=== PATIENT | female | born 1960 | race Caucasian/White ===

== ENCOUNTER 2018-03-11 05:27 | Inpatient (IN) | payer BC ==
[2018-03-06 12:24] LABS: BASOPHILS # (AUTO) 0.1 X10'3 (0-0.2); BASOPHILS % (AUTO) 0.8 % (0-1); EOSINOPHILS # (AUTO) 0.1 X10'3 (0-0.9); LYMPHOCYTES # (AUTO) 1.9 X10'3 (1.1-4.8); MEAN CORPUSCULAR HEMOGLOBIN 29.3 PG (27.0-31.0); MEAN CORPUSCULAR HGB CONC 33.5 % (33.0-36.5); MEAN CORPUSCULAR VOLUME 87.4 FL (78-98); MEAN PLATELET VOLUME 9.8 FL (7.4-10.4); MONOCYTES # (AUTO) 0.8 X10'3 (0-0.9); NEUTROPHILS # (AUTO) 4.2 X10'3 (1.8-7.7); NEUTROPHILS % (AUTO) 60.2 % (42-75); PRE OP HEMATOCRIT 39.9 % (35.0-45.0); PRE OP HEMOGLOBIN 13.4 g/dL (12.0-16.0); PRE OP PLATELET COUNT 283 X10'3 (140-440); RED BLOOD COUNT 4.57 X10'6 (4.20-5.60); RED CELL DISTRIBUTION WIDTH 13.8 % (11.5-14.5)
[2018-03-06 12:26] LABS: CLARITY,URINE Clear (Clear); GLUCOSE, URINE Negative (Neg); KETONES,URINE 15 mg/dl (Neg); LEUKOCYTE ESTERASE ,URINE Negative (Neg); NITRITES, URINE Negative (Neg); OCCULT BLOOD,URINE Negative (Neg); PROTEIN,URINE Negative (Neg)
[2018-03-06 12:28] LABS: COLOR,URINE Dark Yellow (Yellow); UA COLLECTION TYPE CLN CATCH MIDSTREAM
[2018-03-06 12:41] LABS: ALBUMIN 3.9 G/DL (3.4-5.0); ALKALINE PHOSPHATASE 60 IU/L (46-116); BLOOD UREA NITROGEN 16 MG/DL (7-18); BUN/CREATININE RATIO 23.9 (6.6-38.0); CALCIUM 9.5 MG/DL (8.5-10.1); CHLORIDE 103 MMOL/L (99-107); CREATININE 0.67 MG/DL (0.40-0.90); PRE OP ALT 24 U/L (30-65); PRE OP ANION GAP 7 (8-16); PRE OP AST 22 U/L (10-37); PRE OP BILIRUB, TOTAL 0.5 MG/DL (0.0-1.0); PRE OP GLUCOSE 89 MG/DL (70-104); PRE OP POTASSIUM 4.2 MMOL/L (3.4-5.1); PRE OP SODIUM 141 MMOL/L (135-145); TOTAL CARBON DIOXIDE 31.3 MMOL/L (24-32); TOTAL PROTEIN 7.8 G/DL (6.4-8.2); eGFR 90 ML/MIN
[2018-03-11] VITALS (14 sets, daily range): BP systolic 101–134; BP diastolic 46–88
[~2018-03-11] VITALS: Ht 162.6 cm; Wt 56.0 kg
[~2018-03-11 05:27] MED LIST: CALC-854 PO; ESTR1TAB35 PO; IRON-12 PO; MULT-1141 PO; ringers solution, lacted 1,000 ML IV SCH
[2018-03-11] MEDS ORDERED: acetaminophen 325mg tablet PO ONE (05:30)
[2018-03-11] MEDS ORDERED: VANCOMYCIN INJ 1000 MG in NORMAL SALINE 250ml IV.SOLN IV ONE (05:30)
[2018-03-11] MEDS ORDERED: gabapentin 300mg capsule PO ONE (05:30)
[2018-03-11] MEDS ORDERED: ceFAZolin inj. 2,000 MG in dextrose 5%-water 100 ML IV ONE (05:30)
[2018-03-11] MEDS ORDERED: famotidine 20mg tablet PO ONE (05:30)
[2018-03-11] MEDS ORDERED: oxyCODONE SR 10mg (sust. release) tab PO ONE (05:30)
[2018-03-11] MEDS ORDERED: tranexamic acid inj. 1,000 MG in normal saline 100ml IV soln 90 ML IV ONE (05:30)
[2018-03-11] MEDS ORDERED: LIDOcaine 1% (10mg/ml) 2ml vial ONE (05:35)
[2018-03-11] MEDS ORDERED: ROPIVAcaine 0.5% (5mg/ml) 30ml vial ONE (06:53)
[2018-03-11] MEDS ORDERED: bacitracin inj 150,000 UNIT in sodium chloride irrig. sol 3,000 ML IR ONE (07:00)
[2018-03-11] MEDS ORDERED: BUPIVAcaine/PF 7.5mg/ml (0.75%) 10ml vial ONE (07:04)
[2018-03-11] MEDS ORDERED: MIDAZolam 5mg/5ml vial ONE (07:07)
[2018-03-11] MEDS ORDERED: fentaNYL/PF 50MCG/1 ML 2ML syringe ONE (07:07)
[2018-03-11] MEDS ORDERED: propofol inj 20 ML IV ONE (07:44)
[2018-03-11] MEDS ORDERED: midazolam 2 mg/2 ml injection ONE (07:45)
[2018-03-11] MEDS ORDERED: ringers solution, lacted 1,000 ML IV SCH (08:02)
[2018-03-11] MEDS ORDERED: proCHLORperazine 10 MG/2 ml inj IV PRN (08:05)
[2018-03-11] MEDS ORDERED: morphine 4 MG/ML inj SYRINge IV PRN ×2 (08:05)
[2018-03-11] MEDS ORDERED: meperidine/PF 25mg/ml syringe IV PRN ×3 (08:05)
[2018-03-11] MEDS ORDERED: ondansetron/PF 4mg/2ml inj IV PRN ×2 (08:05→09:05)
[2018-03-11] MEDS ORDERED: ceFAZolin 1000mg inj ONE (08:15)
[2018-03-11] MEDS ORDERED: HYDROmorphone inj. 0.5 MG/0.5 ML DISP.SYRIN IV PRN (09:05)
[2018-03-11] MEDS ORDERED: bisacodyl 10mg suppository rectal RC PRN (09:05)
[2018-03-11] MEDS ORDERED: diphenhydrAMINE 25mg capsule PO PRN ×2 (09:05)
[2018-03-11] MEDS ORDERED: oxyCODONE/APAP 10/325mg tablet PO PRN (09:05)
[2018-03-11] MEDS ORDERED: acetaminophen 325mg tablet PO PRN (09:05)
[2018-03-11] MEDS ORDERED: magnesium hydroxide 30ml (MOM) UD suspension PO PRN (09:05)
[2018-03-11] MEDS: potassium cl 20mEq in 1/2 NS 1,000 ML IV SCH ×2 (10:35→18:26)
[2018-03-11] MEDS: gabapentin 300mg capsule PO SCH ×2 (13:25→20:12)
[2018-03-11] MEDS: ceFAZolin 1GM/D5W- ADD-VANTAGE 50 ML IV SCH ×2 (15:42→23:56)
[2018-03-11] MEDS ORDERED: vancomycin/NS 1 GM ADD-VANTAGE 250 ML IV SCH (20:00)
[2018-03-11] MEDS: ascorbic acid 500mg tablet PO SCH (20:12)
[2018-03-11] MEDS: sennosides 8.6mg tablet PO SCH (20:12)
[2018-03-12] VITALS (7 sets, daily range): BP systolic 84–122; BP diastolic 57–74
[2018-03-12] MEDS: oxyCODONE/APAP 10/325mg tablet PO PRN ×5 (01:43→19:16)
[2018-03-12] MEDS: potassium cl 20mEq in 1/2 NS 1,000 ML IV SCH ×3 (05:25→16:43)
[2018-03-12 06:03] LABS: BASOPHILS % (AUTO) 0.2 % (0-1); EOSINOPHILS # (AUTO) 0.1 X10'3 (0-0.9); EOSINOPHILS % (AUTO) 1.3 % (0-6); HEMATOCRIT 35.8 % (35.0-45.0); HEMOGLOBIN 11.8 g/dl (12.0-16.0); LYMPHOCYTES # (AUTO) 1.5 X10'3 (1.1-4.8); LYMPHOCYTES % (AUTO) 17.8 % (21-51); MEAN CORPUSCULAR HEMOGLOBIN 28.8 PG (27.0-31.0); MEAN CORPUSCULAR HGB CONC 32.9 % (33.0-36.5); MEAN CORPUSCULAR VOLUME 87.4 FL (78-98); MEAN PLATELET VOLUME 9.7 FL (7.4-10.4); MONOCYTES # (AUTO) 0.8 X10'3 (0-0.9); MONOCYTES % (AUTO) 9.1 % (2-12); NEUTROPHILS # (AUTO) 5.9 X10'3 (1.8-7.7); NEUTROPHILS % (AUTO) 71.6 % (42-75); PLATELET COUNT 264 X10'3 (140-440); RED CELL DISTRIBUTION WIDTH 13.7 % (11.5-14.5); WHITE BLOOD COUNT 8.2 X10'3 (4.5-11.0)
[2018-03-12 06:06] LABS: INR 1.5 INR; PROTHROMBIN TIME 14.9 SECONDS (9.0-12.0)
[2018-03-12 06:14] LABS: ANION GAP 6 (8-16); CHLORIDE 102 MMOL/L (99-107); SODIUM 138 MMOL/L (135-145); TOTAL CARBON DIOXIDE 30.1 MMOL/L (24-32)
[2018-03-12] MEDS: gabapentin 300mg capsule PO SCH ×3 (07:14→19:16)
[2018-03-12] MEDS: ascorbic acid 500mg tablet PO SCH ×2 (07:14→19:16)
[2018-03-12] MEDS: multivitamins, therapeutics tablet PO SCH (07:14)
[2018-03-12] MEDS: ESTRATEST HS PO SCH (08:00)
[2018-03-12] MEDS ORDERED: warfarin 3mg tablet PO ONE (10:00)
[2018-03-12] MEDS: LACTOSE-FREE FOOD 237ML (BOOST) PO SCH (18:00)
[2018-03-12] MEDS: sennosides 8.6mg tablet PO SCH (19:16)
[2018-03-12] MEDS: celeCOXIB 100mg capsule PO SCH (19:16)
[2018-03-13] MEDS: oxyCODONE/APAP 10/325mg tablet PO PRN ×3 (00:55→12:39)
[2018-03-13] MEDS: potassium cl 20mEq in 1/2 NS 1,000 ML IV SCH (01:03)
[2018-03-13 05:00] VITALS: BP 107/65
[2018-03-13 06:33] LABS: BASOPHILS % (AUTO) 0.3 % (0-1); EOSINOPHILS # (AUTO) 0.1 X10'3 (0-0.9); EOSINOPHILS % (AUTO) 1.6 % (0-6); HEMATOCRIT 34.6 % (35.0-45.0); HEMOGLOBIN 11.4 g/dl (12.0-16.0); LYMPHOCYTES # (AUTO) 1.7 X10'3 (1.1-4.8); LYMPHOCYTES % (AUTO) 20.6 % (21-51); MEAN CORPUSCULAR HEMOGLOBIN 28.9 PG (27.0-31.0); MEAN CORPUSCULAR VOLUME 87.5 FL (78-98); MEAN PLATELET VOLUME 9.4 FL (7.4-10.4); MONOCYTES # (AUTO) 0.9 X10'3 (0-0.9); MONOCYTES % (AUTO) 10.5 % (2-12); NEUTROPHILS # (AUTO) 5.6 X10'3 (1.8-7.7); PLATELET COUNT 233 X10'3 (140-440); RED BLOOD COUNT 3.96 X10'6 (4.20-5.60); RED CELL DISTRIBUTION WIDTH 13.7 % (11.5-14.5); WHITE BLOOD COUNT 8.4 X10'3 (4.5-11.0)
[2018-03-13 06:40] LABS: INR 1.4 INR; PROTHROMBIN TIME 14.5 SECONDS (9.0-12.0)
[2018-03-13] MEDS: ascorbic acid 500mg tablet PO SCH (07:13)
[2018-03-13] MEDS: gabapentin 300mg capsule PO SCH ×2 (07:13→12:38)
[2018-03-13] MEDS: ESTRATEST HS PO SCH (07:13)
[2018-03-13] MEDS: multivitamins, therapeutics tablet PO SCH (07:13)
[2018-03-13] MEDS: celeCOXIB 100mg capsule PO SCH (07:13)
[2018-03-13] MEDS: LACTOSE-FREE FOOD 237ML (BOOST) PO SCH ×2 (08:00→12:38)
[2018-03-13] MEDS ORDERED: ASPI-41 PO (08:07)
[2018-03-13] MEDS ORDERED: acetaminophen 325mg tablet PO PRN (09:05)
[2018-03-13 10:00] VITALS: BP 96/62
[2018-03-13] MEDS ORDERED: warfarin 5mg tablet PO ONE (10:00)
== END 2018-03-13 13:01 | disposition home or self-care (01) | DRG 470 ==
LOC: PAS IN 05:27 → EDSTATUS 07:30 → ORTHO 4S 10:20
PROVIDERS: ADMIT Specialist; ATTEND Specialist
PROC: 0SRB02Z Replacement of Left Hip Joint with Metal on Polyethylene Synthetic Substitute, Open Approach (ICD-10-PCS; principal; 2018-03-11 07:14)
DX: M16.0 Bilateral primary osteoarthritis of hip (principal); D62 Acute posthemorrhagic anemia; Q65.89 Other specified congenital deformities of hip; Z90.710 Acquired absence of both cervix and uterus; Z72.89 Other problems related to lifestyle; Z79.899 Other long term (current) drug therapy
CPT/HCPCS: 36415; 73502; 80051; 80053; 81003; 85025; 85610; 85730; 87070; 97110; 97116; 97161; 97530; A4565; A6253; A6255; A6449; A6455; A7000; C1758; C1776; J0690; J2250; J2405; J2704; J2795; J3010; J3370; J3490; J7030; J7060; J7120

== ENCOUNTER 2018-09-01 05:27 | Inpatient (IN) | payer BC ==
[2018-08-21 11:06] LABS: BASOPHILS # (AUTO) 0.1 X10'3 (0-0.2); BASOPHILS % (AUTO) 1.1 % (0-1); EOSINOPHILS # (AUTO) 0.1 X10'3 (0-0.9); EOSINOPHILS % (AUTO) 0.9 % (0-6); LYMPHOCYTES # (AUTO) 1.7 X10'3 (1.1-4.8); LYMPHOCYTES % (AUTO) 25.4 % (21-51); MEAN CORPUSCULAR HGB CONC 33.2 % (33.0-36.5); MEAN CORPUSCULAR VOLUME 87.3 FL (78-98); MEAN PLATELET VOLUME 9.7 FL (7.4-10.4); MONOCYTES # (AUTO) 0.7 X10'3 (0-0.9); MONOCYTES % (AUTO) 9.6 % (2-12); NEUTROPHILS # (AUTO) 4.3 X10'3 (1.8-7.7); PRE OP HEMATOCRIT 38.4 % (35.0-45.0); PRE OP HEMOGLOBIN 12.7 g/dL (12.0-16.0); PRE OP PLATELET COUNT 281 X10'3 (140-440); RED CELL DISTRIBUTION WIDTH 13.6 % (11.5-14.5)
[2018-08-21 11:06] LABS: CLARITY,URINE CLEAR (Clear); COLOR,URINE YELLOW (Yellow); GLUCOSE, URINE NEGATIVE (Neg); KETONES,URINE NEGATIVE (Neg); LEUKOCYTE ESTERASE ,URINE NEGATIVE (Neg); NITRITES, URINE NEGATIVE (Neg); OCCULT BLOOD,URINE NEGATIVE (Neg); PROTEIN,URINE NEGATIVE (Neg); UROBILINOGEN,URINE 0.2 E.U/dL (0.2-1.0)
[2018-08-21 11:17] LABS: PRE OP PROTIME 10.2 SECONDS (9.0-12.0)
[2018-08-21 11:19] LABS: UA COLLECTION TYPE CLN CATCH MIDSTREAM
[2018-08-21 11:25] LABS: ALBUMIN 3.7 G/DL (3.4-5.0); ALBUMIN/GLOBULIN RATIO 1.1 (1.1-1.5); ALKALINE PHOSPHATASE 50 IU/L (46-116); BLOOD UREA NITROGEN 12 MG/DL (7-18); BUN/CREATININE RATIO 16.9 (6.6-38.0); CHLORIDE 103 MMOL/L (99-107); CREATININE 0.71 MG/DL (0.40-0.90); PRE OP ALT 24 U/L (30-65); PRE OP ANION GAP 10 (8-16); PRE OP AST 21 U/L (10-37); PRE OP BILIRUB, TOTAL 0.2 MG/DL (0.0-1.0); PRE OP GLUCOSE 108 MG/DL (70-104); PRE OP SODIUM 140 MMOL/L (135-145); TOTAL CARBON DIOXIDE 27.3 MMOL/L (24-32); TOTAL PROTEIN 7.1 G/DL (6.4-8.2); eGFR 84 ML/MIN
[2018-09-01] VITALS (25 sets, daily range): BP systolic 91–132; BP diastolic 46–91
[~2018-09-01] VITALS: Ht 162.6 cm; Wt 55.9 kg
[~2018-09-01 05:27] MED LIST changes: +ASCO500C15 PO; +CYAN100097 PO; +FERR-28 PO; -IRON-12 PO; +celeCOXIB 100mg capsule PO ONE
[2018-09-01] MEDS ORDERED: acetaminophen 325mg tablet PO ONE (05:30)
[2018-09-01] MEDS ORDERED: gabapentin 300mg capsule PO ONE (05:30)
[2018-09-01] MEDS ORDERED: oxyCODONE SR 10mg (sust. release) tab -2 tabs (20mg) PO ONE (05:30)
[2018-09-01] MEDS ORDERED: tranexamic acid inj. 1,500 MG in normal saline 100ml IV soln 85 ML IV ONE (05:30)
[2018-09-01] MEDS ORDERED: cefazolin/dext.iso 2gm/50ml 50 ML IV ONE (05:30)
[2018-09-01] MEDS ORDERED: vancomycin/NS 1 GM ADD-VANTAGE 250 ML X 1 DOSE IV ONE (05:30)
[2018-09-01] MEDS ORDERED: famotidine 20mg tablet PO ONE (05:30)
[2018-09-01] MEDS ORDERED: LIDOcaine 1% (10mg/ml) 2ml vial ONE (06:09)
[2018-09-01] MEDS ORDERED: ROPIVAcaine 0.5% (5mg/ml) 30ml vial ONE (06:47)
[2018-09-01] MEDS ORDERED: BUPIVAcaine/dex-water/PF 7.5 mg/ml 2ml ampul ONE (07:09)
[2018-09-01] MEDS ORDERED: MIDAZolam 1mg/ml 10ml vial ONE (07:09)
[2018-09-01] MEDS ORDERED: fentaNYL/PF 50MCG/1 ML 2ML syringe ONE (07:09)
[2018-09-01] MEDS ORDERED: fentaNYL /PF 50mcg/ml 5ml ampule ONE (07:37)
[2018-09-01] MEDS ORDERED: midazolam 2 mg/2 ml injection ONE (07:37)
[2018-09-01] MEDS ORDERED: LIDOcaine 2% (20mg/ml) 5ml vial ONE (07:39)
[2018-09-01] MEDS ORDERED: rocuronium 10mg/ml inj IV ONE (07:40)
[2018-09-01] MEDS ORDERED: propofol inj 20 ML IV ONE ×2 (07:40→08:38)
[2018-09-01] MEDS ORDERED: ketamine 50mg/5ml syringe ONE (08:33)
[2018-09-01] MEDS ORDERED: ringers solution, lacted 1,000 ML IV SCH (08:48)
[2018-09-01] MEDS ORDERED: meperidine/PF 25mg/ml syringe IV PRN ×3 (08:50)
[2018-09-01] MEDS ORDERED: proCHLORperazine 10 MG/2 ml inj IV PRN (08:50)
[2018-09-01] MEDS ORDERED: morphine 4 MG/ML inj SYRINge IV PRN ×2 (08:50)
[2018-09-01] MEDS ORDERED: ondansetron/PF 4mg/2ml inj IV PRN ×2 (08:50→09:30)
[2018-09-01] MEDS ORDERED: ondansetron/PF 4mg/2ml inj ONE (09:11)
[2018-09-01] MEDS ORDERED: ePHEDrine 50MG/ML INJ. ONE (09:11)
[2018-09-01] MEDS ORDERED: phenylephrine 10mg/ml inj. ONE (09:11)
[2018-09-01] MEDS ORDERED: neostigmine methylsulfate 1 MG/ML 10ml vial ONE (09:11)
[2018-09-01] MEDS ORDERED: dexamethasone sod phosphate 4mg/ml inj. ONE (09:11)
[2018-09-01] MEDS ORDERED: glycopyrrolate 0.2mg/ml inj ONE (09:11)
[2018-09-01] MEDS: potassium cl 20mEq in 1/2 NS 1,000 ML IV SCH ×2 (09:28→20:08)
[2018-09-01] MEDS ORDERED: oxyCODONE/APAP 10/325mg tablet PO PRN (09:30)
[2018-09-01] MEDS ORDERED: diphenhydrAMINE 25mg capsule PO PRN ×2 (09:30)
[2018-09-01] MEDS ORDERED: magnesium hydroxide 30ml (MOM) UD suspension PO PRN (09:30)
[2018-09-01] MEDS ORDERED: HYDROmorphone 1 mg/ml syringe IV PRN (09:30)
[2018-09-01] MEDS ORDERED: bisacodyl 10mg suppository rectal RC PRN (09:30)
[2018-09-01] MEDS ORDERED: acetaminophen 325mg tablet PO PRN (09:30)
[2018-09-01] MEDS: gabapentin 300mg capsule PO SCH ×2 (16:09→20:07)
[2018-09-01] MEDS: ceFAZolin 1GM/D5W- ADD-VANTAGE 50 ML IV SCH ×2 (16:09→23:45)
[2018-09-01] MEDS: oxyCODONE/APAP 10/325mg tablet PO PRN ×2 (17:40→22:26)
[2018-09-01] MEDS ORDERED: vancomycin/NS 1 GM ADD-VANTAGE 250 ML IV SCH (20:00)
[2018-09-01] MEDS: calcium carbonate/vitamin D3 tablet PO SCH (20:07)
[2018-09-01] MEDS: sennosides 8.6mg tablet PO SCH (20:07)
[2018-09-01] MEDS: ascorbic acid 500mg tablet PO SCH (20:08)
[2018-09-02 02:00] VITALS: BP 96/52
[2018-09-02] MEDS: oxyCODONE/APAP 10/325mg tablet PO PRN ×4 (04:58→17:17)
[2018-09-02 06:00] VITALS: BP 116/76
[2018-09-02 06:07] LABS: BASOPHILS % (AUTO) 0.3 % (0-1); EOSINOPHILS # (AUTO) 0.2 X10'3 (0-0.9); EOSINOPHILS % (AUTO) 2.1 % (0-6); HEMATOCRIT 36.1 % (35.0-45.0); LYMPHOCYTES # (AUTO) 1.6 X10'3 (1.1-4.8); LYMPHOCYTES % (AUTO) 22.3 % (21-51); MEAN CORPUSCULAR HEMOGLOBIN 29.4 PG (27.0-31.0); MEAN CORPUSCULAR HGB CONC 33.2 % (33.0-36.5); MEAN CORPUSCULAR VOLUME 88.6 FL (78-98); MEAN PLATELET VOLUME 9.8 FL (7.4-10.4); MONOCYTES # (AUTO) 0.6 X10'3 (0-0.9); MONOCYTES % (AUTO) 8.1 % (2-12); NEUTROPHILS # (AUTO) 4.8 X10'3 (1.8-7.7); NEUTROPHILS % (AUTO) 67.2 % (42-75); PLATELET COUNT 244 X10'3 (140-440); RED BLOOD COUNT 4.07 X10'6 (4.20-5.60); RED CELL DISTRIBUTION WIDTH 13.5 % (11.5-14.5); WHITE BLOOD COUNT 7.2 X10'3 (4.5-11.0)
[2018-09-02 06:14] LABS: ANION GAP 8 (8-16); CHLORIDE 102 MMOL/L (99-107); POTASSIUM 3.6 MMOL/L (3.5-5.1); SODIUM 138 MMOL/L (135-145); TOTAL CARBON DIOXIDE 27.8 MMOL/L (24-32)
[2018-09-02 06:17] LABS: INR 1.5 INR; PROTHROMBIN TIME 14.8 SECONDS (9.0-12.0)
[2018-09-02] MEDS: potassium cl 20mEq in 1/2 NS 1,000 ML IV SCH ×2 (06:44→20:24)
[2018-09-02] MEDS ORDERED: ESTERIFIED ESTROGENS PO SCH (08:00)
[2018-09-02] MEDS: ESTRATEST HS PO SCH (08:00)
[2018-09-02] MEDS ORDERED: METHYLTESTOSTERONE PO SCH (08:00)
[2018-09-02] MEDS: ascorbic acid 500mg tablet PO SCH ×2 (08:14→20:20)
[2018-09-02] MEDS: multivitamins, therapeutics tablet PO SCH (08:14)
[2018-09-02] MEDS: gabapentin 300mg capsule PO SCH ×3 (08:14→20:20)
[2018-09-02] MEDS: calcium carbonate/vitamin D3 tablet PO SCH ×2 (08:14→20:20)
[2018-09-02 10:00] VITALS: BP 134/74
[2018-09-02] MEDS ORDERED: warfarin 3mg tablet PO ONE (10:00)
[2018-09-02] MEDS ORDERED: docusate sod 100mg capsule PO ONE (10:40)
[2018-09-02 18:00] VITALS: BP 125/79
[2018-09-02] MEDS: celeCOXIB 100mg capsule PO SCH (20:20)
[2018-09-02] MEDS: sennosides 8.6mg tablet PO SCH (20:20)
[2018-09-02 22:00] VITALS: BP 105/68
[2018-09-03] MEDS: potassium cl 20mEq in 1/2 NS 1,000 ML IV SCH ×2 (01:28→05:24)
[2018-09-03 05:21] LABS: BASOPHILS % (AUTO) 0.2 % (0-1); EOSINOPHILS # (AUTO) 0.2 X10'3 (0-0.9); EOSINOPHILS % (AUTO) 2.6 % (0-6); HEMATOCRIT 34.6 % (35.0-45.0); HEMOGLOBIN 11.4 g/dl (12.0-16.0); LYMPHOCYTES # (AUTO) 1.6 X10'3 (1.1-4.8); LYMPHOCYTES % (AUTO) 19.9 % (21-51); MEAN CORPUSCULAR HEMOGLOBIN 29.1 PG (27.0-31.0); MEAN CORPUSCULAR VOLUME 88.2 FL (78-98); MEAN PLATELET VOLUME 9.8 FL (7.4-10.4); MONOCYTES # (AUTO) 0.9 X10'3 (0-0.9); MONOCYTES % (AUTO) 10.3 % (2-12); NEUTROPHILS # (AUTO) 5.5 X10'3 (1.8-7.7); PLATELET COUNT 222 X10'3 (140-440); RED BLOOD COUNT 3.92 X10'6 (4.20-5.60); RED CELL DISTRIBUTION WIDTH 13.7 % (11.5-14.5); WHITE BLOOD COUNT 8.3 X10'3 (4.5-11.0)
[2018-09-03] MEDS ORDERED: ASPI-1264 PO (05:44)
[2018-09-03 05:47] LABS: INR 1.4 INR
[2018-09-03 06:00] VITALS: BP 108/62
[2018-09-03] MEDS: ESTRATEST HS PO SCH (08:00)
[2018-09-03] MEDS: calcium carbonate/vitamin D3 tablet PO SCH (08:22)
[2018-09-03] MEDS: multivitamins, therapeutics tablet PO SCH (08:22)
[2018-09-03] MEDS: celeCOXIB 100mg capsule PO SCH (08:22)
[2018-09-03] MEDS: gabapentin 300mg capsule PO SCH ×2 (08:22→12:42)
[2018-09-03] MEDS: ascorbic acid 500mg tablet PO SCH (08:22)
[2018-09-03] MEDS ORDERED: acetaminophen 325mg tablet PO PRN (09:30)
[2018-09-03 10:00] VITALS: BP 123/89
[2018-09-03] MEDS ORDERED: warfarin 5mg tablet PO ONE (10:00)
[2018-09-03] MEDS: oxyCODONE/APAP 10/325mg tablet PO PRN (12:42)
== END 2018-09-03 13:50 | disposition home or self-care (01) | DRG 470 ==
LOC: PAS IN 05:27 → EDSTATUS 07:30 → ORTHO 4S 12:11
PROVIDERS: ADMIT Specialist; ATTEND Specialist
PROC: 0SR902Z Replacement of Right Hip Joint with Metal on Polyethylene Synthetic Substitute, Open Approach (ICD-10-PCS; principal; 2018-09-01 07:18)
DX: M16.11 Unilateral primary osteoarthritis, right hip (principal); D62 Acute posthemorrhagic anemia; Z96.642 Presence of left artificial hip joint; Z90.710 Acquired absence of both cervix and uterus; Z79.899 Other long term (current) drug therapy
CPT/HCPCS: 36415; 73502; 80051; 80053; 81003; 85025; 85610; 85730; 86885; 86900; 86901; 87070; 97110; 97116; 97162; 97530; A6253; A6449; A6455; A7000; C1758; C1776; G0378; J0690; J1100; J2001; J2250; J2370; J2405; J2704; J2710; J2795; J3010; J3370; J3490; J7030; J7120

== ENCOUNTER 2023-02-14 05:49 | Day surgery (SDC) | payer BC ==
[2023-02-08 12:06] LABS: BASOPHILS % (AUTO) 0.6 % (0-1); EOSINOPHILS # (AUTO) 0.1 X10'3 (0-0.9); EOSINOPHILS % (AUTO) 1.6 % (0-6); LYMPHOCYTES # (AUTO) 1.7 X10'3 (1.1-4.8); LYMPHOCYTES % (AUTO) 29.3 % (21-51); MEAN CORPUSCULAR HEMOGLOBIN 28.7 PG (27.0-31.0); MEAN CORPUSCULAR HGB CONC 32.9 g/dL (33.0-36.5); MEAN CORPUSCULAR VOLUME 87.2 FL (78-98); MEAN PLATELET VOLUME 8.9 FL (7.4-10.4); MONOCYTES # (AUTO) 0.5 X10'3 (0-0.9); MONOCYTES % (AUTO) 8.8 % (2-12); NEUTROPHILS # (AUTO) 3.4 X10'3 (1.8-7.7); NEUTROPHILS % (AUTO) 59.7 % (42-75); PRE OP HEMATOCRIT 38.8 % (35.0-45.0); PRE OP HEMOGLOBIN 12.7 g/dL (12.0-16.0); PRE OP PLATELET COUNT 279 X10'3 (140-440); RED BLOOD COUNT 4.44 X10'6 (4.20-5.60); RED CELL DISTRIBUTION WIDTH 13.5 % (11.5-14.5)
[2023-02-08 12:11] LABS: PRE OP PROTIME 10.4 SECONDS (9.0-12.0)
[2023-02-08 12:23] LABS: ALBUMIN 4.2 G/DL (3.4-5.0); BLOOD UREA NITROGEN 16 MG/DL (7-18); BUN/CREATININE RATIO 25.4 (10.0-20.0); CALCIUM 8.9 MG/DL (8.5-10.1); CHLORIDE 103 MMOL/L (99-107); CREATININE 0.63 MG/DL (0.40-0.90); PRE OP ANION GAP 5 (8-16); PRE OP BILIRUB, TOTAL 0.5 MG/DL (0.0-1.0); PRE OP GLUCOSE 99 MG/DL (70-104); PRE OP POTASSIUM 3.9 MMOL/L (3.4-5.1); PRE OP SODIUM 138 MMOL/L (135-145); TOTAL CARBON DIOXIDE 29.8 MMOL/L (24-32); TOTAL PROTEIN 7.4 G/DL (6.4-8.2); eGFR > 90 ML/MIN
[2023-02-08 12:24] LABS: ALBUMIN/GLOBULIN RATIO 1.3 (1.1-1.5); ALKALINE PHOSPHATASE 77 IU/L (46-116); CHOLESTEROL 202 MG/DL (0-200); HDL CHOLESTEROL 100 MG/DL (35-60); LDL CHOLESTEROL 84 MG/DL (50-100); PRE OP ALT 28 U/L (30-65); PRE OP AST 21 U/L (10-37); TRIGLYCERIDES 53 MG/DL (20-135)
[2023-02-14] VITALS (9 sets, daily range): BP systolic 142–158; BP diastolic 81–96
[~2023-02-14] VITALS: Ht 162.6 cm; Wt 58.0 kg
[~2023-02-14 05:49] MED LIST changes: -ASCO500C15 PO; +ATOR20TA PO; +BETA1TAB20 PO; +BIOT1CAP3 PO; -CALC-854 PO; +CHOL400T57 PO; -CYAN100097 PO; -ESTR1TAB35 PO; -FERR-28 PO; +MELA10TA10 SL; +cefazolin 2gm/D5W 100mL 100 ML IV ONE; -celeCOXIB 100mg capsule PO ONE; +famotidine 20mg tablet PO ONE
[2023-02-14] MEDS ORDERED: BUPIVAcaine/PF 2.5 mg/ml (0.25%) 30ml vial ONE ×2 (06:54→07:09)
[2023-02-14] MEDS ORDERED: methylene blue (5mg/ml) 50mg/10ml ampul IV ONE (06:54)
[2023-02-14] MEDS ORDERED: BUPIVACAINE liposomal/PF 13.3 MG/ML vial IM ONE (07:09)
[2023-02-14] MEDS ORDERED: proCHLORperazine 10 MG/2 ml inj IV PRN (07:15)
[2023-02-14] MEDS ORDERED: meperidine/PF 25mg/ml syringe IV PRN ×3 (07:15)
[2023-02-14] MEDS ORDERED: morphine 4 MG/ML inj SYRINge IV PRN (07:15)
[2023-02-14] MEDS ORDERED: morphine 2 MG/ML inj. syringe IV PRN (07:15)
[2023-02-14] MEDS ORDERED: ringers solution, lacted 1,000 ML IV SCH (07:15)
[2023-02-14] MEDS ORDERED: ondansetron/PF 4mg/2ml inj IV PRN (07:15)
[2023-02-14] MEDS ORDERED: propofol inj 20 ML IV ONE (07:20)
[2023-02-14] MEDS ORDERED: midazolam 1 mg/ML 2ml injection ONE (07:20)
[2023-02-14] MEDS ORDERED: fentaNYL/PF 50MCG/1 ML 2ML syringe ONE (07:20)
[2023-02-14] MEDS ORDERED: sevoflurane 250ml liquid IH ONE (07:46)
[2023-02-14] MEDS ORDERED: LIDOcaine 1% (10mg/ml)w/preservative inj. 20ml MDV ONE (08:04)
[2023-02-14] MEDS ORDERED: LIDOCAINE 1% w/preservative (10 MG/ML) inj. 10mL VIAL IJ ONE (08:16)
[2023-02-14] MEDS ORDERED: BUPIVAcaine/PF 2.5 mg/ml (0.25%) 30ml vial IJ ONE (08:52)
[2023-02-14] MEDS ORDERED: dexamethasone sod phosphate 4mg/ml inj. ONE (09:01)
[2023-02-14] MEDS ORDERED: ondansetron/PF 4mg/2ml inj ONE (09:02)
--- NOTE | 2023-02-14 09:15 | NUR ---
Received from OR via , accompanied by Anesthesiologist and report given by Anesthesiolgist. PATIENT A&OX4, DENIES PAIN, V/S WNL, SCD ON , PIV 20G RUE, LEFT BREAST DRESSING WITH BREAST BINDER ON CDI
--- NOTE | 2023-02-14 10:05 | NUR ---
A&OX4, DENIES PAIN, V/S WNL, SCD OFF , PIV 20G RUE D/C, LEFT BREAST DRESSING WITH BREAST BINDER ON CDI. I HAVE REVIEWED D/C INSTRUCTIONS WITH PATIENT AND THEY HAVE VERBALIZED UNDERSTANDING OF INSTRUCTIONS. PATIENT D/C HOME WITH ALL BELONGINGS AND FAMILY GAVE TRANSPORT
== END 2023-02-14 10:05 | disposition home or self-care (01) ==
LOC: PAS 05:49
PROVIDERS: ATTEND Surgery
DX: D05.12 Intraductal carcinoma in situ of left breast (principal); E78.5 Hyperlipidemia, unspecified; M19.90 Unspecified osteoarthritis, unspecified site; Z87.891 Personal history of nicotine dependence; Z90.710 Acquired absence of both cervix and uterus; Z98.890 Other specified postprocedural states; Z96.643 Presence of artificial hip joint, bilateral; Z79.899 Other long term (current) drug therapy; Z80.3 Family history of malignant neoplasm of breast; Z80.0 Family history of malignant neoplasm of digestive organs
CPT/HCPCS: 19301; 36415; 76098; 80053; 80061; 82948; 84439; 84443; 84481; 85025; 85610; 93005; J0690; J1100; J2250; J2405; J2704; J3010; J3490; J7030; J7120; Z7506; Z7508; Z7512; A4215; A4618; A6213; A7000; C9290; Q9968